=== PATIENT | female | born 1970 | race Asian ===

== ENCOUNTER 2019-01-11 13:12 | Observation (INO) | payer OTHER ==
[~2019-01-11] VITALS: Ht 162.6 cm; Wt 64.1 kg
[2019-01-11 13:41] LABS: BASOPHILS % (AUTO) 0.7 % (0.0-5.0); EOSINOPHILS % (AUTO) 1.2 % (0.0-8.0); LYMPHOCYTES % (AUTO) 24.6 % (21.0-51.0); MEAN CORPUSCULAR HEMOGLOBIN 15.1 pg (27.0-33.0); MEAN CORPUSCULAR HGB CONC 27.1 g/dL (32.0-36.0); MEAN CORPUSCULAR VOLUME 55.6 fL (79-99); MONOCYTES % (AUTO) 9.8 % (3.0-13.0); NEUTROPHILS % (AUTO) 63.7 % (40.0-77.0); NUCLEATED RED BLOOD CELLS 0.2 % (0.0-0.19); PLATELET COUNT (AUTO) 475 K/uL (130-400); RED BLOOD CELL COUNT(AUTO) 3.67 MIL/uL (4.00-5.50); RED CELL DISTRIBUTION WIDTH 22.4 % (11.0-15.5); WHITE BLOOD COUNT (AUTO) 8.7 K/uL (4.8-10.8)
[2019-01-11 13:47] LABS: HEMATOCRIT 20.4 % (36-48)
[2019-01-11 13:48] LABS: CREATININE 0.5 mg/dL (0.5-1.5); POTASSIUM 4.4 mmol/L (3.5-5.1)
[2019-01-11 13:53] LABS: ALBUMIN 3.7 g/dL (3.5-5.0); BILIRUBIN,TOTAL 0.6 mg/dL (0.2-1.0); TOTAL PROTEIN, SERUM 7.7 g/dL (6.0-8.3)
[2019-01-11 14:03] LABS: INR 1.01 (0.85-1.15); PARTIAL THROMBOPLASTIN TIME 26.9 SEC (26.3-35.5); PROTHROMBIN TIME 10.6 SEC (9.6-11.6)
[2019-01-11 14:17] LABS: APPEARANCE,URINE Cloudy (CLEAR); BILIRUBIN,URINE Negative (NEGATIVE); COLOR,URINE Yellow (YELLOW); GLUCOSE, URINE (UA) Negative (NEGATIVE); KETONES,URINE Trace mg/dL (NEGATIVE); LEUKOCYTE ESTERASE ,URINE Trace (NEGATIVE); NITRATE,URINE Negative (NEGATIVE); OCCULT BLOOD,URINE Negative (NEGATIVE); PROTEIN,URINE Negative (NEGATIVE)
[2019-01-11 14:19] LABS: HCG,QUAL RESULT NEGATIVE (NEGATIVE)
[2019-01-11 14:29] LABS: BACTERIA,URINE Rare /HPF (None Seen); RBC,URINE 0-1 /HPF (0-1); SQUAMOUS EPITHELIAL CELL,UR Few /HPF (0-2)
[2019-01-11 15:28] LABS: RETICULOCYTE % (AUTO) 4.51 % (0.42-2.23)
[2019-01-11 15:54] LABS: % IRON SATURATION 2.9 % (22-44)
[2019-01-11] MEDS: PANTOPRAZOLE SODIUM 40 MG TABLET.DR PO SCH (16:55)
[2019-01-11] MEDS ORDERED: IRON SUCROSE COMPLEX 200 MG in SODIUM CHLORIDE 0.9% 50 ML IV SCH (17:00)
[2019-01-11] MEDS ORDERED: COMPOUND IV MISC 1 EACH IVSOLN MISC PRN (17:00)
[2019-01-11 23:25] VITALS: BP 118/73
--- NOTE | 2019-01-11 23:25 | NUR ---
Admission note: Patient arrived to room via stretcher from ER. Can amb indep. and was placed in bed comfortably. Fully awake and responsive. AOx3. Assessment done. VS checked and recorded. Oriented to room and use of call light. Policies and procedures explained. Verbalized understanding. Has an IV site to RAC # 20 gauge with #2 PRBC unit running (O positive and band # [id number] ) - site intact and patency checked. Plan of care initiated. Denies feeling of discomfort. Observed for any unusualities. Cared for and needs attended.
[2019-01-12 04:00] VITALS: BP 101/65
[2019-01-12 08:00] VITALS: BP 106/67
[2019-01-12] MEDS ORDERED: IRON SUCROSE COMPLEX 200 MG in SODIUM CHLORIDE 0.9% 50 ML IV SCH (09:00)
[2019-01-12] MEDS: PANTOPRAZOLE SODIUM 40 MG TABLET.DR PO SCH (09:09)
[2019-01-12 12:00] VITALS: BP 102/57
[2019-01-12 13:56] LABS: BASOPHILS % (AUTO) 0.7 % (0.0-5.0); EOSINOPHILS % (AUTO) 0.8 % (0.0-8.0); HEMATOCRIT 28.7 % (36-48); MEAN CORPUSCULAR HEMOGLOBIN 18.2 pg (27.0-33.0); MEAN CORPUSCULAR HGB CONC 28.6 g/dL (32.0-36.0); MEAN CORPUSCULAR VOLUME 63.7 fL (79-99); NEUTROPHILS % (AUTO) 73.5 % (40.0-77.0); NUCLEATED RED BLOOD CELLS 0.2 % (0.0-0.19); PLATELET COUNT (AUTO) 485 K/uL (130-400); RED CELL DISTRIBUTION WIDTH 32.1 % (11.0-15.5); WHITE BLOOD COUNT (AUTO) 9.4 K/uL (4.8-10.8)
--- NOTE | 2019-01-12 14:00 | NUR ---
CM NOTE DCD IN OBS SYTATUS NOT SEEN BY CM, NO CONCERNS VOICED BY PT TO RNS OR BY RNS TO CM. NO CM TRIBBERS Addendum: 01/12/19 at 1727 by CAR ANN RN CM Amended: Links added.
== END 2019-01-12 14:50 | disposition home or self-care (01) ==
LOC: EDH 13:12 → EDHIP 15:59 → 3BH 22:25
PROVIDERS: ADMIT Internal Medicine; ATTEND Internal Medicine
DX: D50.9 Iron deficiency anemia, unspecified (principal); N92.0 Excessive and frequent menstruation with regular cycle; Z79.01 Long term (current) use of anticoagulants; Z79.899 Other long term (current) drug therapy
CPT/HCPCS: 36415 ×2; 36430; 71045; 80053; 81001; 81025; 82270; 82607; 82728; 83001; 83002; 85025 ×2; 85610; 85730; 86850; 86900; 86901; 86922 ×2; 96365; 99284; A4600; G0378 ×23; J1756; P9016 ×2